=== PATIENT | male | born 1950 | race Two or more races ===

== ENCOUNTER 2021-05-29 17:19 | Outpatient (CLI) | payer OTHER | END 2021-05-29 17:22 | disposition home or self-care (01) | LOC: LAB 17:19 | PROVIDERS: ATTEND Urology | DX: R97.20 Elevated prostate specific antigen [PSA] (principal) ==

== ENCOUNTER 2021-06-23 07:15 | Outpatient (CLI) | payer OTHER | END 2021-06-23 07:23 | disposition home or self-care (01) | LOC: SONOGRAMA 07:15 | PROVIDERS: ATTEND Urology | DX: R97.20 Elevated prostate specific antigen [PSA] (principal) ==

== ENCOUNTER 2021-07-26 08:07 | Outpatient (CLI) | payer OTHER | END 2021-07-26 08:11 | disposition home or self-care (01) | LOC: TOM 08:07 | PROVIDERS: ATTEND Urology | DX: C61 Malignant neoplasm of prostate (principal) ==

== ENCOUNTER 2021-08-03 07:10 | Outpatient (CLI) | payer OTHER | END 2021-08-03 07:11 | disposition home or self-care (01) | LOC: NUCLEAR 07:10 | PROVIDERS: ATTEND Urology | DX: C61 Malignant neoplasm of prostate (principal) | CPT/HCPCS: 78300; 78803; A9503 ==

== ENCOUNTER 2023-03-18 10:39 | Outpatient (CLI) | payer OTHER ==
[2023-03-18 11:46] LABS: PH,URINE 5.5 (5.0-8.0); URINE APPEARANCE Clear; URINE BILIRRUBIN Negative (NEGATIVE); URINE BLOOD Negative; URINE COLOR Yellow; URINE LEUKOCYTE Negative; URINE NITRATE Negative; URINE PROTEIN Negative (NEGATIVE); URINE UROBILINOGEN 0.2 E.U./dl
[2023-03-18 11:47] LABS: URINE BACTERIA 56.6 uL (0.0-1933); URINE EPITHELIAL CELLS 2.3 uL (0.0-38.8); URINE RBC 3.1 uL (0.0-20.8); URINE WBC 4.9 uL (0.0-23.2)
[2023-03-18 11:57] LABS: URINE GLUCOSE >=1000 MG/DL (NEGATIVE)
== END 2023-03-18 10:40 | disposition home or self-care (01) ==
LOC: EDBD 10:39 → LAB 10:39
PROVIDERS: ATTEND Urology
DX: C61 Malignant neoplasm of prostate (principal)

== ENCOUNTER 2024-01-08 07:25 | Outpatient (CLI) | payer OTHER | END 2024-01-08 07:29 | disposition home or self-care (01) | LOC: LAB 07:25 | PROVIDERS: ATTEND Urology | DX: C61 Malignant neoplasm of prostate (principal) ==

== ENCOUNTER → 2024-04-21 07:11 | Outpatient (CLI) | payer OTHER ==
[2024-04-21 08:07] LABS: URINE APPEARANCE Clear; URINE BILIRRUBIN Negative (NEGATIVE); URINE BLOOD Negative; URINE COLOR Yellow; URINE KETONE Negative (NEGATIVE); URINE LEUKOCYTE Negative; URINE NITRATE Negative; URINE PROTEIN Negative (NEGATIVE); URINE UROBILINOGEN 0.2 E.U./dl
[2024-04-21 08:11] LABS: URINE BACTERIA 15.8 uL (0.0-1933); URINE WBC 4.4 uL (0.0-23.2)
[2024-04-21 08:45] LABS: URINE CAST 0.29 uL (0.0-1.40); URINE EPITHELIAL CELLS 0.9 uL (0.0-38.8); URINE GLUCOSE >=1000 MG/DL (NEGATIVE)
== END | disposition home or self-care (01) ==
LOC: LAB 07:11
PROVIDERS: ATTEND Urology
DX: C61 Malignant neoplasm of prostate (principal)

== ENCOUNTER → 2024-07-17 06:56 | Outpatient (CLI) | payer OTHER ==
[2024-07-17 07:29] LABS: PH,URINE 5.5 (5.0-8.0); URINE APPEARANCE Clear; URINE BILIRRUBIN Negative (NEGATIVE); URINE BLOOD Negative; URINE COLOR Yellow; URINE KETONE Negative (NEGATIVE); URINE LEUKOCYTE Negative; URINE NITRATE Negative; URINE PROTEIN Negative (NEGATIVE); URINE UROBILINOGEN 0.2 E.U./dl
[2024-07-17 07:34] LABS: URINE BACTERIA 18.3 uL (0.0-1933); URINE EPITHELIAL CELLS 1.4 uL (0.0-38.8); URINE RBC 2.7 uL (0.0-20.8)
[2024-07-17 07:35] LABS: URINE CAST 0.44 uL (0.0-1.40); URINE WBC 1.4 uL (0.0-23.2)
[2024-07-17 07:36] LABS: URINE GLUCOSE >=1000 MG/DL (NEGATIVE)
== END | disposition home or self-care (01) ==
LOC: LAB 06:56
PROVIDERS: ATTEND Urology
DX: C61 Malignant neoplasm of prostate (principal)

== ENCOUNTER 2025-02-23 07:10 | Outpatient (CLI) | payer OTHER | END 2025-02-23 07:14 | disposition home or self-care (01) | LOC: LAB 07:10 | PROVIDERS: ATTEND Urology | DX: C61 Malignant neoplasm of prostate (principal) ==